=== PATIENT | female | born 1975 | race Caucasian/White ===

== ENCOUNTER 2016-11-27 15:08 | Emergency (ER) | payer BC, OTHER ==
[~2016-11-27] VITALS: Ht 165.1 cm; Wt 107.5 kg
[2016-11-27 16:35] LABS: MCH 29.5 PG (29.0-34.0); MCHC 32.9 G/DL (30.0-36.0); MCV 89.6 FL (83-99); MEAN PLAT.VOLUME 10.3 uM^3 (9.5-12.4); PLATELET COUNT 224 K/uL (156-360); RBC DIS.WIDTH-CV 12.6 % (11.8-14.6); RBC DIS.WIDTH-SD 41.3 % (39-53); RED BLOOD COUNT 4.24 M/uL (3.80-5.20)
[2016-11-27] MEDS ORDERED: AUBAGIO14 MG PO (16:40)
[2016-11-27 16:42] LABS: CHLORIDE 107 mEq/L (99-109); POTASSIUM 3.9 mEq/L (3.7-5.4); SODIUM 142 mEq/L (136-147)
[2016-11-27 16:44] LABS: GLUCOSE 99 mg/dL (70-99)
[2016-11-27 16:46] LABS: ANION GAP 8 MEQ/L (2-14)
[2016-11-27 16:48] LABS: GFR ESTIMATE (CALCULATED) > 59 mL/min/
[2016-11-27 16:49] LABS: UREA NITROGEN (BUN) 12 mg/dL (9-23)
[2016-11-27 17:00] LABS: ADD MIUA? YES; BILIRUBIN NEGATIVE; BLOOD MODERATE; COLOR YELLOW ((YELLOW)); GLUCOSE (STRIP) NEGATIVE; KETONES NEGATIVE; LEUKOCYTES NEGATIVE; NITRITE NEGATIVE; PROTEIN (STRIP) NEGATIVE; SPECIFIC GRAVITY 1.016 (1.000-1.030); UROBILINOGEN 0.2 MG/DL (0.2-1.0)
[2016-11-27 17:09] LABS: BACTERIA NONE SEEN /HPF; EPITHELIAL CELLS RARE /HPF; MUCUS TRACE /LPF; UCUL ADDED? NO; WHITE BLOOD CELLS 0-5 /HPF (0-5)
[2016-11-27] MEDS ORDERED: NORCO 5/3251 TABLET PO (18:31)
[2016-11-27 18:41] VITALS: BP 116/79
== END 2016-11-27 18:41 | disposition home or self-care (01) ==
LOC: RME 15:08 → EME 15:08 → RME 18:41
DX: R31.9 Hematuria, unspecified (principal); R10.9 Unspecified abdominal pain; M54.9 Dorsalgia, unspecified; R11.0 Nausea; K57.30 Diverticulosis of large intestine without perforation or abscess without bleeding
CPT/HCPCS: 74176; 80048; 81003; 85027; 99281; 99284